=== PATIENT | male | born 1960 | race Caucasian/White ===

== ENCOUNTER 2024-05-13 06:39 | Outpatient (REF) | payer OTHER, SELFPAY ==
--- NOTE | ~2024-05-13 | US_ITS ---
EXAMINATION: US RETROPERITONEAL COMPLETE (RENAL) CLINICAL INFORMATION: Low back pain, question history of renal calculi. COMPARISON: None available. TECHNIQUE: Real-time imaging of the kidneys and bladder. Limited visualization due to bowel gas. FINDINGS: RIGHT KIDNEY: 11.8 x 4.9 x 4.8 cm (SAG x AP x TRV). Diffuse renal cortical thinning. Increased renal echogenicity can be seen with medical renal disease. No hydronephrosis. No renal calculi. Limited visualization. LEFT KIDNEY: 11.1 x 6.3 x 5.7 cm (SAG x AP x TRV). Diffuse renal cortical thinning. Increased renal echogenicity can be seen with medical renal disease. No hydronephrosis. No renal calculi. Limited visualization. BLADDER: Well-distended. Mild diffuse irregularity of the bladder wall. Bilateral ureteral jets are demonstrated. Prevoid bladder volume is 199 mL. Postvoid bladder volume is 78 mL. Prostate volume is 32 mL. US/US retroperitoneal comp IMPRESSION: 1. Diffuse renal cortical thinning. Increased renal echogenicity can be seen with medical renal disease. No hydronephrosis. No renal calculi. Limited visualization. 2. Mild diffuse irregularity of the bladder wall. 3. Prostate volume is 32 mL. This study was presented today May 14, 2024 for interpretation. Stat results provided at this time as requested by referring provider. Electronically signed by: Enriqueta Moreira MD 05/14/2024 06:24 AM [facility] [place]
== END 2024-05-13 06:40 | disposition home or self-care (01) ==
LOC: HO.UMASIMG 06:39
PROVIDERS: Visit Provider Family Medicine
DX: R03.0 Elevated blood-pressure reading, without diagnosis of hypertension (principal); M54.50 Low back pain, unspecified
CPT/HCPCS: 76770